=== PATIENT | male | born 1980 | race Caucasian/White ===

== ENCOUNTER 2016-11-23 14:35 | Emergency (ER) | payer BC, OTHER ==
[2016-11-23 14:55] VITALS: BP 134/78
--- NOTE | 2016-11-23 15:30 | UC ---
Skin Complaint HPI - HPI Summary HPI Summary: Patient presents to with CC of metal shelf hitting the top of the scalp approx 1 hour ago. Denies LOC. Linear laceration measuring 4cm. Denies other complaints. Denies blood thinners. Denies nausea/vomiting or visual disturbances. - History of Current Complaint Chief Complaint: UCLaceration Time Seen by Provider: 11/23/16 15:00 Stated Complaint: HEAD LAC Hx Obtained From: Patient Onset/Duration: Sudden Onset Skin Exposure Onset/Duration: Hours Ago Timing: Constant Onset Severity: Mild Current Severity: Mild Pain Intensity: 5 Pain Scale Used: 0-10 Numeric Character: Pain Aggravating: Nothing Alleviating: Nothing Associated Signs & Symptoms: Positive: Negative Related History: Trauma - Allergy/Home Medications Allergies/Adverse Reactions: Allergies Allergy/AdvReac Type Severity Reaction Status Date / Time No Known Allergies Allergy Verified 11/23/16 14:49 Home Medications: Home Medications NK [No Home Medications Reported] 11/23/16 [History Confirmed 11/23/16] Review of Systems Constitutional: Negative Skin: Other - 4cm laceration to the top of the scalp Respiratory: Negative Cardiovascular: Negative Motor: Negative Neurovascular: Negative Musculoskeletal: Negative Psychological: Negative All Other Systems Reviewed And Are Negative: Yes PMH/Surg Hx/FS Hx/Imm Hx Previously Healthy: Yes - Surgical History Surgical History: Yes Surgery Procedure, Year, and Place: RIGHT KNEE SX. LEFT WRIST. NASAL SX. SX A CHILD - Family History Known Family History: Positive: Unknown - Social History Occupation: Employed Full-time Lives: With Family Alcohol Use: None Substance Use Type: Marijuana Smoking Status (MU): Never Smoked Tobacco When Did the Patient Quit Smoking/Using Tobacco: 7 YRS AGO - Immunization History Most Recent Tetanus Shot: unsure Physical Exam Triage Information Reviewed: Yes Appearance: Well-Appearing, No Pain Distress, Well-Nourished Vital Signs: Initial Vital Signs Temp 98.6 F 11/23/16 14:50 Pulse 70 11/23/16 14:50 Resp 16 11/23/16 14:50 BP 134/78 11/23/16 14:50 Pulse Ox 98 11/23/16 14:50 Vital Signs Reviewed: Yes Eye Exam: Normal Neck exam: Normal Neck: Positive: Supple, No Lymphadenopathy Respiratory Exam: Normal Respiratory: Positive: Chest non-tender Cardiovascular Exam: Normal Musculoskeletal Exam: Normal Musculoskeletal: Positive: Strength Intact Psychological: Positive: Normal Response To Family, Age Appropriate Behavior Skin: Positive: Other - 4cm laceration to the top of the scalp Laceration Repair - Laceration Repair 1 Description: Linear Laceration Size After Repair: Length (cm) - 4cm Modified For Repair: No Closure Material: Ekta - 4 Course/Dx - Course Course Of Treatment: 4cm laceration to the top of the scalp after sustaining a blow from a shelf approximately 1 hour ago. Tetanus UTD. Denies LOC or other symptoms. Wound irrigated well with NS. 4 ekta applied. Patient tolerated well. - Differential Diagnoses - Skin Complaint Differential Diagnoses: Other - laceration, avulsion, puncture - Diagnoses Provider Diagnoses: Laceration of scalp Discharge - Discharge Plan Condition: Stable Disposition: HOME Patient Education Materials: Staple Care (ED) Referrals: Gaurav Driver DO [Primary Care Provider] - Additional Instructions: Return in approximately 10 days for staple removal. If you develop any worsening symptoms, bleeding, drainage from the area, or you develop a fever, return to immediately.
== END 2016-11-23 15:32 | disposition home or self-care (01) ==
LOC: UCCORT 14:35
DX: Z87.891 Personal history of nicotine dependence (principal); F12.10 Cannabis abuse, uncomplicated; S01.01XA Laceration without foreign body of scalp, initial encounter; W20.8XXA Other cause of strike by thrown, projected or falling object, initial encounter; Y93.9 Activity, unspecified; Y92.9 Unspecified place or not applicable; Y99.9 Unspecified external cause status
CPT/HCPCS: 12002; 99211; G0463

== ENCOUNTER 2016-12-04 07:34 | Emergency (ER) | payer BC ==
[2016-12-04 07:43] VITALS: BP 136/71
--- NOTE | 2016-12-04 07:58 | UC ---
HPI Wound/Suture Re-check - HPI Summary HPI Summary: "Here for suture removal on top of head. Sutures placed here on 11/23/16." healing well. no d/c or fevers or chills. Has had tetanus within the past 10 yrs he reports and declines update today. - History Of Current Complaint Chief Complaint: UCGeneralIllness Stated Complaint: NEEDS EKTA REMOVED FROM HEAD Time Seen by Provider: 12/04/16 07:44 - Allergies/Home Medications Allergies/Adverse Reactions: Allergies Allergy/AdvReac Type Severity Reaction Status Date / Time No Known Allergies Allergy Verified 12/04/16 07:38 PMH/Surg Hx/FS Hx/Imm Hx Previously Healthy: Yes - Surgical History Surgical History: Yes Surgery Procedure, Year, and Place: RIGHT KNEE SX. LEFT WRIST. NASAL SX. SX A CHILD - Family History Known Family History: Positive: Diabetes - Social History Alcohol Use: None Substance Use Type: None Smoking Status (MU): Never Smoked Tobacco When Did the Patient Quit Smoking/Using Tobacco: 7 YRS AGO - Immunization History Most Recent Influenza Vaccination: NONE Most Recent Tetanus Shot: Unk Review of Systems Constitutional: Negative Skin: Negative Eyes: Negative ENT: Negative Respiratory: Negative Cardiovascular: Negative Gastrointestinal: Negative Genitourinary: Negative Motor: Negative Neurovascular: Negative Musculoskeletal: Negative Neurological: Negative Psychological: Negative All Other Systems Reviewed And Are Negative: Yes Physical Exam Triage Information Reviewed: Yes Appearance: Well-Appearing, No Pain Distress, Well-Nourished Vital Signs: Initial Vital Signs Temp 97.4 F 12/04/16 07:38 Pulse 77 12/04/16 07:38 Resp 16 12/04/16 07:38 BP 136/71 12/04/16 07:38 Pulse Ox 99 12/04/16 07:38 Vital Signs Reviewed: Yes Skin: Positive: Other - 4 ekta superior scalp. no erythema, no drainage. cool to touch. lac well healed with opposing margins. Course/Dx - Course Course Of Treatment: 4 ekta removed without incident. tolerated well. - Differential Dx - Laceration/Wound Differential Diagnoses: Suture Removal Provider Diagnoses: staple removal Discharge - Discharge Plan Condition: Stable Disposition: HOME Patient Education Materials: Staple Care (ED) Referrals: Gaurav Driver DO [Primary Care Provider] - If Needed
== END 2016-12-04 08:04 | disposition home or self-care (01) ==
LOC: UCCORT 07:34
DX: Z48.02 Encounter for removal of sutures (principal); Z87.891 Personal history of nicotine dependence